=== PATIENT | female | born 1950 | race Caucasian/White ===

== ENCOUNTER → 2025-03-12 08:21 | Outpatient (CLI) | payer MEDICARE, OTHER, SELFPAY ==
[2025-03-12 09:05] LABS: Influenza A - CEPHEID Flu A NEGATIVE (NEGATIVE); Influenza B - CEPHEID Flu B NEGATIVE (NEGATIVE)
[2025-03-12 09:14] LABS: COVID-19 CEPHEID 4-PLEX PCR Negative (Negative)
== END ==
PROVIDERS: Visit Provider Nurse Practitioner Family
DX: R05.9 Cough, unspecified (principal)
CPT/HCPCS: 87637